=== PATIENT | male | born 1955 | race Caucasian/White ===

== ENCOUNTER 2016-07-28 18:49 | Inpatient (IN) | payer BC ==
--- NOTE | ~2016-07-28 | DS ---
Discharge Summary [facility] [address] [place]. [address] NAME: REGINALDO PIERRE : 53 STATUS : DIS IN PAT#: [id number] AGE: 60 ADM/REG DATE : 07/28/16 MR#: [id number] REPORT SERV DATE: 08/05/16 DICTATED BY: JOSE ELIAS VARGAS DATE: 08/04/16 REPORT STATUS : Draft TRANSCRIBED BY: MODL DATE: 08/04/16 ADMISSION DATE: 07/28/2016 DISCHARGE DATE: 08/04/2016 DISCHARGE DIAGNOSES: 1. Acute on chronic hypoxemic and hypercapnic respiratory failure, improved on current BiPAP therapy, now improved for home BiPAP. 2. Acute exacerbation of chronic obstructive pulmonary disease, currently resolved. 3. Obesity with obstructive sleep apnea and obesity hypoventilation syndrome, improved with BiPAP. 4. Acute on chronic diastolic heart failure, currently resolved. 5. Possible streptococcal pneumonia, now resolved. 6. Type 2 diabetes mellitus that is uncontrolled due to the patient's noncompliance and morbid obesity. 7. Iron deficiency anemia, status post IV iron. 8. Contaminated positive blood culture for Clostridium perfringens and staff anticoagulation, repeat blood cultures were negative without treatment. 9. Hypertension. 10.Hyperlipidemia. 11.Cirrhosis. 12.Coronary artery disease, status post stenting. 13.History of cerebrovascular accident. 14.History of venous thromboembolism. 15.Neuropathy. 16.Chronic rhinitis. OPERATIONS: None. CONSULTANTS DURING THIS HOSPITALIZATION: Radha Schaefer of Pulmonology. INVASIVE PROCEDURES DONE DURING THIS HOSPITALIZATION: None. BRIEF HISTORY OF PRESENT ILLNESS: The patient is a 60-year-old male who was triaged into the emergency room on 07/28/2016 at 1849 hours with shortness of breath. After evaluation in the emergency room, he was thought to have acute COPD exacerbation and was referred to the Hospitalist Service for further treatment. After admission, this patient was cared for by Dr. Vinh Reilly, please refer to interim summary dictated by Dr. Vinh Reilly on 08/02/2016. HOSPITAL COURSE: I took over this patient's care on 08/03/2016. This patient was doing well and stable. All medical conditions had improved. We were waiting for his insurance company to approve his BiPAP, this took almost 48 hours routine care. His BiPAP has been approved and will be delivered in the home setting. He remained stable, otherwise and is being discharged in stable condition. DISCHARGE DISPOSITION: Home. Discharge Summary [place] [address] [place]. [address] NAME: REGINALDO PIERRE : 53 STATUS : DIS IN PAT#: [id number] AGE: 60 ADM/REG DATE : 07/28/16 MR#: [id number] REPORT SERV DATE: 08/05/16 DICTATED BY: JOSE ELIAS VARGAS DATE: 08/04/16 REPORT STATUS : Draft TRANSCRIBED BY: TYREE DATE: 08/04/16 DISCHARGE ACTIVITY: As tolerated. DISCHARGE DIET: 1800-calorie [place] [employer] diet. DISCHARGE MEDICATIONS: Coreg 3.125 mg twice daily, Zantac 300 mg once at bedtime, Lasix 20 mg once daily, gabapentin 600 mg three times daily, Lantus SoloSTAR 40 units subcu twice daily, lisinopril 5 mg once daily, Prilosec 40 mg once at bedtime, simvastatin 40 mg once at bedtime, Proventil HFA two puffs every four hours p.r.n., albuterol neb four times daily, Spiriva one capsule inhalation once daily, Symbicort 160/4.5 two puffs twice daily, Symax 0.125 mg every four hours p.r.n. for abdominal cramping, Humalog 15 units subcu before each meal, potassium 10 mEq p.o. once daily. DISCHARGE FOLLOWUP: With Dr. Ashley Saucedo at [facility] in one to two weeks. More than 30 minutes spent planning this patient's discharge, reconciling medications, writing prescriptions, discussing hospital care, followup with the patient, arranging proper discharge, and documenting this discharge. CHRISTIAN/TYREE Jose Elias Vargas M.D. / [id number] CC: Jack Anaya MD
--- NOTE | ~2016-07-28 | PUL ---
[id number] [place]. [address] NAME: REGINALDO PIERRE : 53 STATUS : ADM IN [facility]#: [id number] AGE: 60 ADM/REG DATE : 07/28/16 MR#: [id number] REPORT SERV DATE: 07/30/16 DICTATED BY: STEPHANIE ARCHER DATE: 07/30/16 REPORT STATUS : Draft TRANSCRIBED BY: MODL DATE: 07/30/16 PULMONARY FUNCTION TEST OVERNIGHT OXIMETRY REPORT START DATE OF TESTIN07/29/2016 END DATE OF TESTIN07/30/2016 COMMENTS: Testing was conducted while the patient was breathing supplemental oxygen at a flow rate of 4 L/minute. RESULTS: Total valid sampling time 6 hours 55 minutes and 14 seconds. Total time with an oxygen saturation less than 88%, 28 minutes and 58 seconds. Oxygen desaturation event index, 4.0. IMPRESSION: There was significant desaturation during this study conducted while the patient was breathing supplemental oxygen at a flow rate of 4 L/minute. The oxygen desaturation index was not consistent with obstructive sleep apnea. Recommend increasing supplemental oxygen flow rate with sleep to a minimum of 5 L/minute. PS/MODL Stephanie Archer M.D. / [id number] CC: Vinh Reilly M.D.
--- NOTE | ~2016-07-28 | IDS ---
Interim Discharge Summary [facility] [address] [place]. [address] NAME: REGINALDO PIERRE : 53 STATUS : ADM IN PAT#: [id number] AGE: 60 ADM/REG DATE : 07/28/16 MR#: [id number] REPORT SERV DATE: 08/03/16 DICTATED BY: REG REILLY DATE: 08/02/16 REPORT STATUS : Draft TRANSCRIBED BY: MODL DATE: 08/02/16 ADMISSION DATE: 07/28/2016 DISCHARGE DATE: 08/02/2016 Interim summary covers period 07/29/2016 through 08/02/2016. CURRENT DIAGNOSES: 1. Acute on chronic hypoxemic and hypercapnic respiratory failure, improved on current therapy plus BiPAP. 2. Acute exacerbation of chronic obstructive pulmonary disease, improved. 3. Obesity with obstructive sleep apnea and obesity hypoventilation syndrome. The latter two improved with BiPAP. 4. Acute on chronic diastolic heart failure, improved. 5. Possible streptococcal pneumonia. 6. Diabetes. 7. Iron deficiency with ferritin of 11 and Hemoccult-positive stool, IV Nulecit treatment. Outpatient GI evaluation already scheduled. 8. Positive blood culture for Clostridium perfringens and Staph agglutination negative on admission, possible contaminant, repeat cultures pending. 9. Hypertension. 10.Hyperlipidemia. 11.Cirrhosis. 12.Coronary artery disease, post stenting. 13.History of stroke. 14.History of venous thromboembolism. 15.Neuropathy. 16.Chronic rhinitis. OPERATIONS AND PROCEDURES: None. HISTORY OF PRESENT ILLNESS: This is a 60-year-old white male, who was triaged in the emergency room on 07/28/2016 at 1849 hours with shortness of breath. After evaluation in the emergency room, he was thought to have an acute COPD exacerbation. He was referred to the Hospitalist Service for admission. He was seen by Dr. Dalton Caro and admitted as described on admission history and physical examination. Additional history included continued tobacco use. He had previously had hospitalizations at other [facility] for similar illnesses. He has had an extended stay at [facility]. He had Trilogy at home by his account, but no longer had this device. He was being followed by Dr. Schaefer in the Pulmonary Clinic. For some reason, home BiPAP had not been able to be arranged. ADDITIONAL HISTORY: Per Dr. Caro. PHYSICAL EXAMINATION: Per Dr. Caro. Interim Discharge Summary [id number] [place]. [address] NAME: REGINALDO PIERRE : 53 STATUS : ADM IN PAT#: [id number] AGE: 60 ADM/REG DATE : 07/28/16 MR#: [id number] REPORT SERV DATE: 08/03/16 DICTATED BY: REG REILLY DATE: 08/02/16 REPORT STATUS : Draft TRANSCRIBED BY: MODL DATE: 08/02/16 ADMISSION LABORATORY: Per Dr. Caro. HOSPITAL COURSE: He was admitted by Dr. Caro with acute COPD exacerbation, acute on chronic hypoxic respiratory failure, chronic hypercarbic respiratory failure, obstructive sleep apnea, obesity hypoventilation syndrome not on CPAP or BiPAP, morbid obesity, chronic diastolic heart failure with concern for volume overload. All in the setting of the above- mentioned comorbidities. He was admitted to [address] [place] [address]. He was given bronchodilator therapy, IV steroids, Levaquin, and BiPAP. He was given some additional diuretic therapy. His hospital care was assumed by the undersigned on 07/29/2016. With the above mentioned therapy, there has been continued improvement in his admitting symptoms. Today, his cough is largely resolved and his dyspnea is dramatically improved. Arterial blood gases in the emergency room were pH 738, pCO2 of 74, and pO2 of 67. On 07/30/2016, pH 726, pCO2 of 99, and pO2 77. On 08/01/2016, pH 744, pCO2 of 51, and pO2 of 60 on 5 L. Case management is working with his insurance case management to get a BiPAP approved for home use. With additional diuretic therapy, he has had a sustained diuresis with resolution of his lower extremity edema without the development of renal impairment. On admission, cultures were obtained. His sputum was positive for Strep pneumonia. One blood culture was no growth. A second blood culture grew clostridium perfringens and Staph species agglutination negative. This may be contaminant. Repeat blood cultures are pending. He had a hemoglobin of 12.8 on admission which fell to 11.7 and is 12.3 today. An evaluation included an iron of 26, TIBC 406%, sat 8, ferritin 11, B12 of 459, TSH 0.521, LDH 171, and serum protein electrophoresis which did not demonstrate a monoclonal gammopathy. A stool was checked for blood and was Hemoccult positive. He has been given IV Nulecit iron replacement without side effect. He reports a previous GI evaluation, but does not know his physician. Apparently, these records were at [facility]. They have been requested, but have not been received as of this date. He reports he has a followup evaluation already scheduled. During his hospitalization, he has requested an increasing amount of calories. This has been provided without significant changes in his diabetes management. DISPOSITION: Home, pending BiPAP approval. Care to be assumed by hospitalist team. Interim Discharge Summary [id number] [place]. [address] NAME: REGINALDO PIERRE : 53 STATUS : ADM IN [facility]#: [id number] AGE: 60 ADM/REG DATE : 07/28/16 MR#: [id number] REPORT SERV DATE: 08/03/16 DICTATED BY: REG REILLY DATE: 08/02/16 REPORT STATUS : Draft TRANSCRIBED BY: MODTrevin DATE: 08/02/16 DD/TYREE Reg Reilly M.D. / [id number] CC: Jack Arndt MD
--- NOTE | ~2016-07-28 | HP ---
History And Physical [place] [address] [id number] [facility] [place]. [address] NAME: REGINALDO PIERRE : 53 STATUS : ADM IN PAT#: [id number] AGE: 60 ADM/REG DATE : 07/28/16 MR#: [id number] REPORT SERV DATE: 07/28/16 DICTATED BY: SAMI GALLOWAY DATE: 07/28/16 REPORT STATUS : Draft TRANSCRIBED BY: MODL DATE: 07/28/16 DATE OF ADMISSION: 07/28/2016 POINT OF ENTRY: [facility] Emergency Department. PRIMARY [employer] CONTRACTOR: Dr. Radha Schaefer. CHIEF COMPLAINT: Shortness of breath. HISTORY OF PRESENT ILLNESS: Mr. Pierre is a 60-year-old gentleman with a history of COPD on 4 L nasal cannula as well as morbid obesity hypoventilation syndrome and obstructive sleep apnea, noncompliant with either CPAP or BiPAP therapy, who presents to the emergency department today with a three to four-day history of shortness of breath. Unfortunately, the patient continues to smoke cigarettes about a half pack per day, although he tells me that he quit smoking yesterday. He states that for the past three to four days he has noted progressive worsening shortness of breath, associated wheezing, as well as worsening of his baseline cough and sputum production. He denies any fevers, night sweats, chills, or lower extremity edema. He does report some chest pain with coughing but denies any chest pain at rest or with exertion. He states that he did not adjust his oxygen condenser or tank as he is unable to handle any increase, did start to increase the frequency of his bronchodilators at home without much improvement. The patient has a history of obstructive sleep apnea and obesity hypoventilation syndrome, as well as severe COPD and has previously been on either CPAP or BiPAP at home but states that it is broken and has not been able to get it replaced. Initial evaluation in the emergency department notable for a chest x-ray that is concerning for intravascular volume overload as well as bibasilar infiltrates concerning for atelectasis versus pneumonia. ABG is well-compensated on 6 L nasal cannula. Remainder of his labs are otherwise unremarkable. The patient was subsequently admitted to the Hospitalist Service for further evaluation and management. REVIEW OF SYSTEMS: Comprehensive review of systems otherwise negative unless listed in history of present illness. PREVIOUS MEDICAL HISTORY: 1. Severe COPD on 4 L by nasal cannula. 2. Obesity hypoventilation syndrome. 3. Obstructive sleep apnea, not on CPAP or BiPAP therapy. 4. Chronic diastolic congestive heart failure. 5. Chronic hypoxic and hypercarbic respiratory failure. 6. Hypertension. 7. Hyperlipidemia. 8. History of coronary artery disease with prior PCI. History And Physical [address] [address] NAME: REGINALDO PIERRE : 53 STATUS : ADM IN [facility]#: [id number] AGE: 60 ADM/REG DATE : 07/28/16 MR#: [id number] REPORT SERV DATE: 07/28/16 DICTATED BY: SAMI GALLOWAY DATE: 07/28/16 REPORT STATUS : Draft TRANSCRIBED BY: TYREE DATE: 07/28/16 9. Insulin-dependent diabetes mellitus, type 2 with recent hemoglobin A1c of 9.5. 10.Morbid obesity. 11.History of hepatic cirrhosis. 12.Chronic hepatitis C. 13.History of cerebrovascular accident. SURGICAL HISTORY: PCI. ALLERGIES: CODEINE AND DILAUDID. HOME MEDICATIONS: 1. Albuterol two puff inhalation q.4 hours p.r.n. 2. Albuterol one nebulization q.4 hours p.r.n. 3. Goody's powder one packet daily p.r.n. 4. Symbicort two puff inhalation b.i.d. 5. Carvedilol 3.125 mg b.i.d. 6. Gabapentin 600 mg t.i.d. 7. Hyoscyamine 0.125 mg q.4 hours p.r.n. 8. Lantus 40 units b.i.d. 9. Humalog 15 units with meals. 10.Lisinopril 5 mg daily. 11.Omeprazole 40 mg at bedtime. 12.Zantac 300 mg at bedtime. 13.Simvastatin 40 mg at bedtime. 14.Spiriva one cap inhalation daily. SOCIAL HISTORY: He was smoking a pack per day up until yesterday which he now says he has quit. Denies any alcohol. Denies illicits. FAMILY MEDICAL HISTORY: History of COPD and emphysema. LABS AND IMAGIN. White count 6.5, hemoglobin 12.8, hematocrit 42.3, and platelet count 152. 2. Sodium is 143, potassium 3.9, chloride 97, carbon dioxide 41, BUN 7, creatinine 0.58, glucose is 121, calcium is 8.1, protein 6.6, albumin 3.0, bilirubin is 0.9, ALT is 21, AST 19, and alkaline phosphatase is 156. 3. Troponin is less than 0.02. 4. BNP is pending. 5. ABG; pH is 7.3, pCO2 of 74, PO2 of 67, bicarb is 43, saturating 93% on 6 L by nasal cannula. 6. Chest x-ray per my review shows cardiomegaly as well as bibasilar infiltrates concerning for atelectasis versus pneumonia, also presence of intravascular volume overload and pulmonary venous congestion. PHYSICAL EXAMINATION: VITAL SIGNS: Temperature is 98.0 degrees Fahrenheit, pulse is 90, respirations 18, saturating 96% on 6 L by nasal cannula, and blood pressure 161/80. History And Physical [address] [address] NAME: REGINALDO PIERRE : 53 STATUS : ADM IN [facility]#: [id number] AGE: 60 ADM/REG DATE : 07/28/16 MR#: [id number] REPORT SERV DATE: 07/28/16 DICTATED BY: SAMI GALLOWAY DATE: 07/28/16 REPORT STATUS : Draft TRANSCRIBED BY: TYREE DATE: 07/28/16 GENERAL: The patient is awake, alert, in no acute distress. Resting comfortably in bed. He is a morbidly obese appearing male. HEENT: Atraumatic and normocephalic. Moist mucous membranes. Pupils are equal, round, and reactive to light and accommodation. Extraocular eye movements are intact. No scleral icterus. NECK: No jugular venous distention. No carotid bruits. CARDIAC: Regular rate and rhythm. A 2/6 systolic murmur, heard best over left lower sternal border. LUNGS: On oxygen, but in no respiratory distress. Does have some decreased breath sounds at bases as well as diffuse mild inspiratory wheezes in all lung hardy with some faint inspiratory crackles in the bilateral bases. ABDOMEN: Obese soft, nontender, nondistended. Good bowel sounds. No rebound, guarding, or rigidity. EXTREMITIES: Warm and perfused. No cyanosis or clubbing. Does have some trace lower extremity edema. SKIN: Warm and dry. PSYCH: Affect appropriate. NEURO: Alert and oriented x3. Cranial nerves 2 through 12 grossly intact. Speech is normal. Gait not assessed. ASSESSMENT: Mr. Pierre is a 60-year-old gentleman with history of severe chronic obstructive pulmonary disease, as well as chronic hypoxic and hypercarbic respiratory failure, who presents with a three to four-day history of worsening shortness of breath and found to have acute chronic obstructive pulmonary disease exacerbation. PROBLEM LIST: 1. Acute COPD exacerbation. 2. Acute on chronic hypoxic respiratory failure. 3. Chronic hypercarbic respiratory failure. 4. Obstructive sleep apnea and obesity hypoventilation syndrome, not on CPAP or BiPAP therapy. 5. Morbid obesity. 6. Chronic diastolic congestive heart failure with concern for volume overload. 7. History of coronary artery disease. 8. Insulin-dependent diabetes mellitus, type 2. PLAN: 1. Acute COPD exacerbation. We will admit the patient to Hospitalist Service, place on IV steroids, as well as frequent nebulizers and bronchodilators as well as some antibiotics. ABG shows that he is currently well compensated. Will not require continuous BiPAP. We will place him on some p.r.n. as well as at bedtime BiPAP given his history of noncompliance with home CPAP or BiPAP for his multiple lung diseases. 2. Acute on chronic hypoxic respiratory failure. We will attempt to wean as tolerated. The patient currently is well compensated for his chronic hypercarbia. 3. Chronic diastolic congestive heart failure. He does have some mild edema on exam and chest x-ray is concerning for intravascular volume overload. BNP is pending at the time of dictation. We will place him on some low-dose IV Lasix, attempt to improve his History And Physical [address] [address] NAME: REGINALDO PIERRE : 53 STATUS : ADM IN [facility]#: [id number] AGE: 60 ADM/REG DATE : 07/28/16 MR#: [id number] REPORT SERV DATE: 07/28/16 DICTATED BY: SAMI GALLOWAY DATE: 07/28/16 REPORT STATUS : Draft TRANSCRIBED BY: MODL DATE: 07/28/16 oxygenation and breathing. 4. Insulin-dependent diabetes mellitus, type 2. Continue the patient's home insulin regimen. Place him on a level 3 insulin sliding scale given need for IV steroids. 5. History of coronary artery disease. Troponin is negative, but we will check an EKG given reports of chest pain with coughing. 6. Active tobacco abuse. Nicotine replacement protocol. Counseled on need for cessation. 7. DVT prophylaxis. Lovenox subcu. CODE STATUS: The patient wished to be full code. JCSuha/MODL Sami Galloway MD / [id number] CC: Ashley Schaefer M.D.
[~2016-07-28 18:49] MED LIST: *UNABLE3; ACCUNEB INH; ADVAIR250 INH; ALBUTEROL5 INH; AMARYL2 PO; AMB10 PO; ATROVENT HFA17 MCG INH; BP MED PO; BUM1 PO; BUM2 PO; BUM5 PO; CEFT5 PO; CLARIT10 PO; COREG3 PO; DIL2TAB PO; DIOV80 PO; FLOVENT DISK50 MCG INH; FOLIC PO; GLUCOPHAGE1000 MG PO; GLUCPH PO; HUMALOG; HUMALOG SC; HUMIBID1200 MG PO; IRON325 MG PO; JANUMET1 TA1 PO; KDUR20 PO; KLOR-CON M2020 MEQ PO; L20 PO; LAM250 PO; LANTUS SC; LEVAQUIN750 MG PO; LEVEMIR SC; LOP25 PO; LOP50 PO; LORTAB10 PO; MONODOX100 MG PO; NEUR300; NEUR600 PO; NORCO1 TAB PO; NORV10 PO; NORV5 PO; NOVOLOG SC; P10 PO; P20 PO; PEP20 PO; PLAVIX PO; PRILO PO; PRIN2.5 PO; PRIN5 PO; PROAIR HFA INH; PROVENTSOL INH; SPIRIVA INH; SPIRO50 PO; SYMBICORT 160/41 INH INH; T300 PO; ULTRAM50 PO; VENTOLIN HFA INH; ZESTORETIC1 TAB PO; ZESTRIL5 MG PO; ZITH250 PO; ZITHROMAX500 MG PO; ZOCOR40 PO; [UNRECOGNIZED DRUG - OTHER] PO
[2016-07-28 20:29] LABS: BASOPHILS 0.5 %; BASOPHILS ABSOLUTE 0.03 10/3/uL (0.0-0.16); EOSINOPHILS 1.5 %; ER CBC TAT 0 Hrs 05 Mins; HEMOGLOBIN 12.8 g/dL (13.6-17.8); IMMATURE GRANULOCYTES 0.2 %; IMMATURE GRANULOCYTES ABSOLUTE 0.01 10/3/uL (0.0-0.11); LYMPHOCYTES 14.3 %; LYMPHOCYTES ABSOLUTE 0.93 10/3/uL (0.67-4.30); MEAN CORPUS HGB CONC 30.3 g/dL (32.0-36.0); MEAN CORPUSCULAR HEMOGLOB 30.3 pg (26.0-34.0); MEAN CORPUSCULAR VOLUME 100.2 fL (80-100); MEAN PLATELET VOLUME 11.9 fL (9.2-13.0); MONOCYTES 11.4 %; MONOCYTES ABSOLUTE 0.74 10/3/uL (0.21-1.20); NEUTROPHILS 72.1 %; PLATELET COUNT 152 10/3/uL (150-400); RBC DISTRIBUTION WIDTH 14.3 % (12.0-16.0); RED CELL COUNT 4.22 10/6/uL (4.7-6.1); WHITE BLOOD CELLS 6.5 10/3/uL (4.5-10.5)
[2016-07-28 20:30] LABS: HEMATOCRIT 42.3 % (40.0-51.0); MANUAL DIFF NO %
[2016-07-28 20:33] LABS: ALLENS TEST Pos; BE (BASE EXCESS) 14.5 MEQ/L (0 +/- 2.5); DEVICE NC; HEMOBLOGIN CONTENT 13.3 G/DL (14-18); INSTRUMENT SERIAL # 8087; METHEMOGLOBIN 0.3 % (0-3); O2 CONTENT 16.8 VOL% (18-24); OPERATOR ID 334499; PCO2 (CO2 TENSION) 74 MMHG (35-45); PO2 (O2 TENSION) 67 MMHG (79-93); SAMPLE Arterial; pH 7.38 (7.37-7.43)
[2016-07-28 20:47] LABS: A/G RATIO 0.8 (0.7-1.9); ALKALINE PHOSPHATASE 156 U/L (45-117); BUN (BLOOD UREA NITROGEN) 7 MG/DL (6-23); CALCIUM, SERUM 8.1 MG/DL (8.5-10.4); CHLORIDE, SERUM 97 MMOL/L (96-112); CO2 (CARBON DIOXIDE) 41 MMOL/L (24-34); CREATININE 0.58 MG/DL (0.70-1.30); GFR AFRICAN AMERICAN 128 ML/MIN (>=60); GFR NON AFRICAN AMERICAN 110 ML/MIN (>=60); GLOBULIN 3.6 G/DL (2.5-4.1); GLUCOSE, SERUM 121 MG/DL (60-99); POTASSIUM, SERUM 3.9 MMOL/L (3.5-5.3); SGOT(AST) 19 U/L (5-40); SGPT(ALT) 21 U/L (5-65); SODIUM, SERUM 143 MMOL/L (135-148); TOTAL BILIRUBIN 0.9 MG/DL (0-1.2); TOTAL PROTEIN 6.6 G/DL (6.0-8.5); TROPONIN I <0.02 NG/ML (<0.05)
[2016-07-28] MEDS ORDERED: PRIN5 PO (21:21)
[2016-07-28] MEDS ORDERED: ALBUTEROL0.63 MG/3 INH (21:22)
[2016-07-28] MEDS ORDERED: ZOCOR40 PO (21:22)
[2016-07-28] MEDS ORDERED: COREG3 PO (21:22)
[2016-07-28] MEDS ORDERED: SPIRIVA INH (21:23)
[2016-07-28] MEDS ORDERED: NEUR300 PO (21:23)
[2016-07-28] MEDS ORDERED: RANITIDINE300 MG PO (21:23)
[2016-07-28] MEDS ORDERED: PRILOSEC40 MG PO (21:23)
[2016-07-28] MEDS ORDERED: SYMBICORT 160/41 INH INH (21:23)
[2016-07-28] MEDS ORDERED: LANTUSCART SC (21:24)
[2016-07-28] MEDS ORDERED: HUMALOG SC (21:24)
[2016-07-28] MEDS ORDERED: GOODY'S EX-STR1 EAC1 PO (21:24)
[2016-07-28] MEDS ORDERED: SYMAX-SL0.125 MG PO (21:24)
[2016-07-28] MEDS ORDERED: PROVHFA INH (21:25)
[2016-07-28 23:04] LABS: PROCALCITONIN 0.11 ng/mL (<0.5)
[2016-07-29 05:31] LABS: BASOPHILS 0 %; EOSINOPHILS 0.2 %; EOSINOPHILS ABSOLUTE 0.01 10/3/uL (0.0-0.53); HEMATOCRIT 41.6 % (40.0-51.0); IMMATURE GRANULOCYTES 0.2 %; IMMATURE GRANULOCYTES ABSOLUTE 0.01 10/3/uL (0.0-0.11); LYMPHOCYTES 8.2 %; LYMPHOCYTES ABSOLUTE 0.44 10/3/uL (0.67-4.30); MEAN CORPUS HGB CONC 28.8 g/dL (32.0-36.0); MEAN CORPUSCULAR HEMOGLOB 29.2 pg (26.0-34.0); MEAN CORPUSCULAR VOLUME 101.2 fL (80-100); MEAN PLATELET VOLUME 12.3 fL (9.2-13.0); MONOCYTES 2.2 %; MONOCYTES ABSOLUTE 0.12 10/3/uL (0.21-1.20); NEUTROPHILS 89.2 %; PLATELET COUNT 149 10/3/uL (150-400); RBC DISTRIBUTION WIDTH 14.2 % (12.0-16.0); RED CELL COUNT 4.11 10/6/uL (4.7-6.1); WHITE BLOOD CELLS 5.4 10/3/uL (4.5-10.5)
[2016-07-29 05:34] LABS: MANUAL DIFF NO %
[2016-07-29 05:54] LABS: BUN (BLOOD UREA NITROGEN) 10 MG/DL (6-23); CALCIUM, SERUM 8.4 MG/DL (8.5-10.4); CHLORIDE, SERUM 95 MMOL/L (96-112); CO2 (CARBON DIOXIDE) 39 MMOL/L (24-34); CREATININE 0.81 MG/DL (0.70-1.30); FREE T4 1.02 NG/DL (0.76-1.46); GFR AFRICAN AMERICAN 111 ML/MIN (>=60); GFR NON AFRICAN AMERICAN 96 ML/MIN (>=60); POTASSIUM, SERUM 4.3 MMOL/L (3.5-5.3); SODIUM, SERUM 141 MMOL/L (135-148)
[2016-07-29 05:55] LABS: GLUCOSE, SERUM 233 MG/DL (60-99); ULTRASENSITIVE TSH 0.521 MCIU/ML (0.358-3.740)
[2016-07-29 18:22] LABS: C-REACTIVE PROTEIN 9.1 MG/L (<8.0); FERRITIN 11 NG/ML (26-388); IRON BINDING CAPACITY 406 MCG/DL (250-450); IRON, SERUM 26 MCG/DL (35-150)
[2016-07-30 05:50] LABS: ALLENS TEST Pos; BE (BASE EXCESS) 11.9 MEQ/L (0 +/- 2.5); CARBOXYHEMOGLOBIN 0.7 % (0-3); DEVICE NC; HEMOBLOGIN CONTENT 12.5 G/DL (14-18); INSTRUMENT SERIAL # 8083; METHEMOGLOBIN 0.3 % (0-3); O2 CONTENT 16.4 VOL% (18-24); PCO2 (CO2 TENSION) 99 MMHG (35-45); PO2 (O2 TENSION) 77 MMHG (79-93); SAMPLE Arterial; pH 7.26 (7.37-7.43)
[2016-07-30 07:07] LABS: BASOPHILS 0 %; EOSINOPHILS 0 %; HEMATOCRIT 39.8 % (40.0-51.0); HEMOGLOBIN 11.7 g/dL (13.6-17.8); IMMATURE GRANULOCYTES 0.1 %; IMMATURE GRANULOCYTES ABSOLUTE 0.01 10/3/uL (0.0-0.11); LYMPHOCYTES 13.4 %; LYMPHOCYTES ABSOLUTE 1.01 10/3/uL (0.67-4.30); MEAN CORPUS HGB CONC 29.4 g/dL (32.0-36.0); MEAN CORPUSCULAR HEMOGLOB 29.2 pg (26.0-34.0); MEAN CORPUSCULAR VOLUME 99.3 fL (80-100); MEAN PLATELET VOLUME 11.9 fL (9.2-13.0); MONOCYTES 9.8 %; MONOCYTES ABSOLUTE 0.74 10/3/uL (0.21-1.20); NEUTROPHILS 76.7 %; PLATELET COUNT 158 10/3/uL (150-400); RBC DISTRIBUTION WIDTH 14.2 % (12.0-16.0); RED CELL COUNT 4.01 10/6/uL (4.7-6.1)
[2016-07-30 07:13] LABS: MANUAL DIFF NO %; WHITE BLOOD CELLS 7.6 10/3/uL (4.5-10.5)
[2016-07-30 07:16] LABS: CALCIUM, SERUM 8.5 MG/DL (8.5-10.4); CHLORIDE, SERUM 98 MMOL/L (96-112); CREATININE 0.64 MG/DL (0.70-1.30); GFR AFRICAN AMERICAN 122 ML/MIN (>=60); GFR NON AFRICAN AMERICAN 106 ML/MIN (>=60); POTASSIUM, SERUM 4.6 MMOL/L (3.5-5.3); SODIUM, SERUM 142 MMOL/L (135-148)
[2016-07-30 07:17] LABS: BUN (BLOOD UREA NITROGEN) 18 MG/DL (6-23); CO2 (CARBON DIOXIDE) 40 MMOL/L (24-34); GLUCOSE, SERUM 116 MG/DL (60-99)
[2016-07-30 10:22] LABS: A/G 1.34 RATIO (0.9-2.10); ALB RELATIVE % 57.3 % (60.0-89.0); ALBUMIN (ELECTRO) 3.44 GM/DL (3.2-5.5); ALPHA 1 (ELECTRO) 0.23 GM/DL (0.1-0.4); ALPHA 1 RELAT % (NOT ORD) 3.8 % (1.0-4.0); ALPHA 2 (ELECTRO) 0.75 GM/DL (0.5-1.10); ALPHA 2 RELAT % 12.5 % (4.5-26.0); BETA GLOBULIN (SPE) 0.75 GM/DL (0.60-1.30); BETA RELATIVE % 12.5 % (9.0-22.0); GAMMA GLOBULIN (SPE) 0.83 G/DL (0.70-1.60); GAMMA RELAT % 13.9 % (6.0-22.0)
[2016-07-31 06:14] LABS: BASOPHILS 0.1 %; BASOPHILS ABSOLUTE 0.01 10/3/uL (0.0-0.16); EOSINOPHILS 0 %; HEMATOCRIT 42.6 % (40.0-51.0); HEMOGLOBIN 12.6 g/dL (13.6-17.8); IMMATURE GRANULOCYTES 0.3 %; IMMATURE GRANULOCYTES ABSOLUTE 0.02 10/3/uL (0.0-0.11); LYMPHOCYTES 15.6 %; LYMPHOCYTES ABSOLUTE 1.19 10/3/uL (0.67-4.30); MEAN CORPUS HGB CONC 29.6 g/dL (32.0-36.0); MEAN CORPUSCULAR HEMOGLOB 29.2 pg (26.0-34.0); MEAN CORPUSCULAR VOLUME 98.6 fL (80-100); MEAN PLATELET VOLUME 11.8 fL (9.2-13.0); MONOCYTES 11.1 %; MONOCYTES ABSOLUTE 0.85 10/3/uL (0.21-1.20); NEUTROPHILS 72.9 %; NEUTROPHILS ABSOLUTE 5.57 10/3/uL (2.02-8.40); PLATELET COUNT 148 10/3/uL (150-400); RBC DISTRIBUTION WIDTH 14.1 % (12.0-16.0); RED CELL COUNT 4.32 10/6/uL (4.7-6.1); RETICULOCYTE COUNT 3.3 % (0.5-2.5); RETICULOCYTE COUNT ABSOLUTE 141.3 10/3/uL (20.2-119.8); WHITE BLOOD CELLS 7.6 10/3/uL (4.5-10.5)
[2016-07-31 06:15] LABS: MANUAL DIFF NO %
[2016-07-31 06:31] LABS: CALCIUM, SERUM 8.6 MG/DL (8.5-10.4); CHLORIDE, SERUM 97 MMOL/L (96-112); CO2 (CARBON DIOXIDE) 39 MMOL/L (24-34); CREATININE 0.83 MG/DL (0.70-1.30); GFR AFRICAN AMERICAN 110 ML/MIN (>=60); GFR NON AFRICAN AMERICAN 95 ML/MIN (>=60); GLUCOSE, SERUM 119 MG/DL (60-99); POTASSIUM, SERUM 4.1 MMOL/L (3.5-5.3); SODIUM, SERUM 139 MMOL/L (135-148)
[2016-07-31 06:34] LABS: BUN (BLOOD UREA NITROGEN) 31 MG/DL (6-23)
[2016-08-01 07:17] LABS: CALCIUM, SERUM 8.1 MG/DL (8.5-10.4); CHLORIDE, SERUM 100 MMOL/L (96-112); CO2 (CARBON DIOXIDE) 38 MMOL/L (24-34); CREATININE 0.77 MG/DL (0.70-1.30); GFR AFRICAN AMERICAN 114 ML/MIN (>=60); GFR NON AFRICAN AMERICAN 98 ML/MIN (>=60); POTASSIUM, SERUM 4.1 MMOL/L (3.5-5.3); SODIUM, SERUM 142 MMOL/L (135-148)
[2016-08-01 07:18] LABS: BUN (BLOOD UREA NITROGEN) 24 MG/DL (6-23); GLUCOSE, SERUM 155 MG/DL (60-99)
[2016-08-02 07:13] LABS: BASOPHILS 0.2 %; BASOPHILS ABSOLUTE 0.01 10/3/uL (0.0-0.16); EOSINOPHILS 0.7 %; EOSINOPHILS ABSOLUTE 0.04 10/3/uL (0.0-0.53); HEMATOCRIT 41.6 % (40.0-51.0); HEMOGLOBIN 12.3 g/dL (13.6-17.8); IMMATURE GRANULOCYTES 0.3 %; IMMATURE GRANULOCYTES ABSOLUTE 0.02 10/3/uL (0.0-0.11); LYMPHOCYTES 20.9 %; LYMPHOCYTES ABSOLUTE 1.24 10/3/uL (0.67-4.30); MEAN CORPUS HGB CONC 29.6 g/dL (32.0-36.0); MEAN CORPUSCULAR HEMOGLOB 29.4 pg (26.0-34.0); MEAN CORPUSCULAR VOLUME 99.5 fL (80-100); MEAN PLATELET VOLUME 11.8 fL (9.2-13.0); MONOCYTES 9.6 %; MONOCYTES ABSOLUTE 0.57 10/3/uL (0.21-1.20); NEUTROPHILS 68.3 %; NEUTROPHILS ABSOLUTE 4.06 10/3/uL (2.02-8.40); PLATELET COUNT 138 10/3/uL (150-400); RBC DISTRIBUTION WIDTH 14.1 % (12.0-16.0); RED CELL COUNT 4.18 10/6/uL (4.7-6.1); WHITE BLOOD CELLS 5.9 10/3/uL (4.5-10.5)
[2016-08-02 07:15] LABS: MANUAL DIFF NO %; RETICULOCYTE COUNT 2.1 % (0.5-2.5); RETICULOCYTE COUNT ABSOLUTE 89.5 10/3/uL (20.2-119.8)
[2016-08-02 07:26] LABS: BUN (BLOOD UREA NITROGEN) 26 MG/DL (6-23); CALCIUM, SERUM 8.2 MG/DL (8.5-10.4); CHLORIDE, SERUM 100 MMOL/L (96-112); CO2 (CARBON DIOXIDE) 36 MMOL/L (24-34); CREATININE 0.63 MG/DL (0.70-1.30); GFR AFRICAN AMERICAN 123 ML/MIN (>=60); GFR NON AFRICAN AMERICAN 106 ML/MIN (>=60); GLUCOSE, SERUM 94 MG/DL (60-99); POTASSIUM, SERUM 4.3 MMOL/L (3.5-5.3); SODIUM, SERUM 141 MMOL/L (135-148)
[2016-08-02 07:40] LABS: PLATELET ESTIMATE SLT DEC (ADEQUATE)
[2016-08-02 07:41] LABS: POLYCHROMASIA 1+ (2-5/OIF) (0-1/OIF)
[2016-08-03] MEDS ORDERED: L20 PO (12:20)
[2016-08-03] MEDS ORDERED: KLOR-CON 1010 MEQ PO (12:22)
[2016-12-17] MEDS ORDERED: CLARIT10 PO (09:11)
[2016-12-17] MEDS ORDERED: AMB5 PO (09:12)
[2016-12-17] MEDS ORDERED: SINGULAIR1 PO (09:12)
[2016-12-17] MEDS ORDERED: PROTONIX PO (09:12)
[2016-12-17] MEDS ORDERED: MOBIC15 MG PO (09:12)
[2016-12-17] MEDS ORDERED: HALF81 PO (09:12)
[2016-12-19] MEDS ORDERED: P10 PO (16:49)
[2016-12-19] MEDS ORDERED: VIBRATAB100 MG PO (16:50)
== END 2016-08-04 16:59 | disposition home or self-care (01) | DRG 291 ==
LOC: ER 18:49 → 6NO 22:11
PROVIDERS: Emergency Medicine; Internal Medicine
PROC: 5A09357 Assistance with Respiratory Ventilation, Less than 24 Consecutive Hours, Continuous Positive Airway Pressure (ICD-10-PCS; principal; 2016-07-29)
DX: I50.33 Acute on chronic diastolic (congestive) heart failure (principal); J15.4 Pneumonia due to other streptococci; J96.21 Acute and chronic respiratory failure with hypoxia; J44.0 Chronic obstructive pulmonary disease with (acute) lower respiratory infection; F17.210 Nicotine dependence, cigarettes, uncomplicated; D50.9 Iron deficiency anemia, unspecified; J96.22 Acute and chronic respiratory failure with hypercapnia; J44.1 Chronic obstructive pulmonary disease with (acute) exacerbation; E66.2 Morbid (severe) obesity with alveolar hypoventilation; Z68.41 Body mass index [BMI] 40.0-44.9, adult; E11.40 Type 2 diabetes mellitus with diabetic neuropathy, unspecified; I11.0 Hypertensive heart disease with heart failure; E78.5 Hyperlipidemia, unspecified; B18.2 Chronic viral hepatitis C; K74.60 Unspecified cirrhosis of liver; J30.9 Allergic rhinitis, unspecified; E11.65 Type 2 diabetes mellitus with hyperglycemia; I25.10 Atherosclerotic heart disease of native coronary artery without angina pectoris; R19.7 Diarrhea, unspecified; Z79.4 Long term (current) use of insulin; Z88.5 Allergy status to narcotic agent; Z86.73 Personal history of transient ischemic attack (TIA), and cerebral infarction without residual deficits; Z86.718 Personal history of other venous thrombosis and embolism
CPT/HCPCS: 36600; 71010; 80048; 80053; 82272; 82330; 82607; 82728; 82803; 82805; 82947; 82962; 83036; 83540; 83550; 83615; 83735; 83880; 84132; 84145; 84155; 84165; 84295; 84439; 84443; 84484; 85014; 85025; 85045; 86140; 87040; 87070; 87077; 87186; 87205; 87449; 94640; 94660; 94667; 94668; 94762; 96374; 99285; A9270-GY; J1956; J2916; J2930

== ENCOUNTER 2016-08-31 15:26 | Emergency (ER) | payer BC ==
[~2016-08-31 15:26] MED LIST changes: +ALBUTEROL0.63 MG/3 INH; +GOODY'S EX-STR1 EAC1 PO; +KLOR-CON 1010 MEQ PO; +LANTUSCART SC; +NEUR300 PO; +PRILOSEC40 MG PO; +PROVHFA INH; +RANITIDINE300 MG PO; +SYMAX-SL0.125 MG PO
[2016-08-31 15:36] LABS: BASOPHILS 0.3 %; BASOPHILS ABSOLUTE 0.02 10/3/uL (0.0-0.16); EOSINOPHILS ABSOLUTE 0.06 10/3/uL (0.0-0.53); HEMATOCRIT 40.7 % (40.0-51.0); HEMOGLOBIN 12.7 g/dL (13.6-17.8); LYMPHOCYTES 13.9 %; LYMPHOCYTES ABSOLUTE 0.86 10/3/uL (0.67-4.30); MEAN CORPUSCULAR HEMOGLOB 30.2 pg (26.0-34.0); MEAN CORPUSCULAR VOLUME 96.9 fL (80-100); MEAN PLATELET VOLUME 12.3 fL (9.2-13.0); MONOCYTES 7.4 %; MONOCYTES ABSOLUTE 0.46 10/3/uL (0.21-1.20); NEUTROPHILS 77.4 %; NEUTROPHILS ABSOLUTE 4.78 10/3/uL (2.02-8.40); PLATELET COUNT 107 10/3/uL (150-400); RBC DISTRIBUTION WIDTH 15.9 % (12.0-16.0); WHITE BLOOD CELLS 6.2 10/3/uL (4.5-10.5)
[2016-08-31 15:38] LABS: MANUAL DIFF NO %; MEAN CORPUS HGB CONC 31.2 g/dL (32.0-36.0)
[2016-08-31 15:54] LABS: CALCIUM, SERUM 8.7 MG/DL (8.5-10.4); CHEST PAIN PROFILE TAT 0 Hrs 22 Mins; CHLORIDE, SERUM 106 MMOL/L (96-112); CREATININE 0.85 MG/DL (0.70-1.30); GFR AFRICAN AMERICAN 109 ML/MIN (>=60); GFR NON AFRICAN AMERICAN 94 ML/MIN (>=60); PARTIAL THROMBO TIME 32.9 SEC (22.5-37.2); SODIUM, SERUM 143 MMOL/L (135-148); TROPONIN I 0.02 NG/ML (<0.05)
[2016-08-31 15:55] LABS: INTERNATIONAL NORMAL RATI 1.1 UNITS (-); PROTIME (NOT ORD) 14.3 SEC (12.0-14.5)
[2016-08-31 15:56] LABS: BUN (BLOOD UREA NITROGEN) 13 MG/DL (6-23); CO2 (CARBON DIOXIDE) 29 MMOL/L (24-34); GLUCOSE, SERUM 157 MG/DL (60-99)
[2016-12-17] MEDS ORDERED: CLARIT10 PO (09:11)
[2016-12-17] MEDS ORDERED: SINGULAIR1 PO (09:12)
[2016-12-17] MEDS ORDERED: PROTONIX PO (09:12)
[2016-12-17] MEDS ORDERED: AMB5 PO (09:12)
[2016-12-17] MEDS ORDERED: HALF81 PO (09:12)
[2016-12-17] MEDS ORDERED: MOBIC15 MG PO (09:12)
[2016-12-19] MEDS ORDERED: P10 PO (16:49)
[2016-12-19] MEDS ORDERED: VIBRATAB100 MG PO (16:50)
== END 2016-08-31 19:04 | disposition home or self-care (01) ==
LOC: ER 15:26
PROVIDERS: Emergency Medicine
DX: R00.8 Other abnormalities of heart beat (principal); G89.29 Other chronic pain; I25.10 Atherosclerotic heart disease of native coronary artery without angina pectoris; R06.02 Shortness of breath; Z68.41 Body mass index [BMI] 40.0-44.9, adult; J44.9 Chronic obstructive pulmonary disease, unspecified; I25.2 Old myocardial infarction; Z86.73 Personal history of transient ischemic attack (TIA), and cerebral infarction without residual deficits; Z88.5 Allergy status to narcotic agent; Z79.4 Long term (current) use of insulin; Z79.899 Other long term (current) drug therapy
CPT/HCPCS: 71010; 78452; 80048; 83735; 84484; 85025; 85610; 85730; 93005; 93017; 96374; 99284; A9502; J1250; J1885

== ENCOUNTER 2016-10-30 18:11 | Emergency (ER) | payer BC ==
[2016-10-30 14:09] LABS: ALLENS TEST Pos; BE (BASE EXCESS) 1.9 MEQ/L (0 +/- 2.5); CARBOXYHEMOGLOBIN 1.8 % (0-3); DEVICE NC; HCO3 (ACTUAL BICARBONATE) 27.1 MEQ/L (23-27); HEMOBLOGIN CONTENT 14.5 G/DL (14-18); INSTRUMENT SERIAL # 8087; METHEMOGLOBIN 0.2 % (0-3); O2 CONTENT 19.8 VOL% (18-24); PCO2 (CO2 TENSION) 44 MMHG (35-45); PO2 (O2 TENSION) 118 MMHG (79-93); SAMPLE Arterial
[2016-10-30 14:23] LABS: BASOPHILS 0.3 %; BASOPHILS ABSOLUTE 0.02 10/3/uL (0.0-0.16); EOSINOPHILS 1.6 %; ER CBC TAT 0 Hrs 07 Mins; HEMATOCRIT 43.9 % (40.0-51.0); HEMOGLOBIN 13.6 g/dL (13.6-17.8); IMMATURE GRANULOCYTES 0.2 %; IMMATURE GRANULOCYTES ABSOLUTE 0.01 10/3/uL (0.0-0.11); LYMPHOCYTES 15.2 %; LYMPHOCYTES ABSOLUTE 0.95 10/3/uL (0.67-4.30); MANUAL DIFF NO %; MEAN CORPUSCULAR HEMOGLOB 29.4 pg (26.0-34.0); MEAN PLATELET VOLUME 12.2 fL (9.2-13.0); MONOCYTES 9.8 %; MONOCYTES ABSOLUTE 0.61 10/3/uL (0.21-1.20); NEUTROPHILS 72.9 %; NEUTROPHILS ABSOLUTE 4.55 10/3/uL (2.02-8.40); PLATELET COUNT 122 10/3/uL (150-400); RBC DISTRIBUTION WIDTH 14.1 % (12.0-16.0); RED CELL COUNT 4.62 10/6/uL (4.7-6.1); WHITE BLOOD CELLS 6.2 10/3/uL (4.5-10.5)
[2016-10-30 14:34] LABS: BUN (BLOOD UREA NITROGEN) 11 MG/DL (6-23); CHLORIDE, SERUM 102 MMOL/L (96-112); CO2 (CARBON DIOXIDE) 31 MMOL/L (24-34); CREATININE 0.73 MG/DL (0.70-1.30); GFR AFRICAN AMERICAN 115 ML/MIN (>=60); GFR NON AFRICAN AMERICAN 99 ML/MIN (>=60); GLUCOSE, SERUM 181 MG/DL (60-99); POTASSIUM, SERUM 4.3 MMOL/L (3.5-5.3); SODIUM, SERUM 139 MMOL/L (135-148)
[2016-10-30 14:35] LABS: CALCIUM, SERUM 9.7 MG/DL (8.5-10.4)
[2016-12-17] MEDS ORDERED: CLARIT10 PO (09:11)
[2016-12-17] MEDS ORDERED: SINGULAIR1 PO (09:12)
[2016-12-17] MEDS ORDERED: AMB5 PO (09:12)
[2016-12-17] MEDS ORDERED: PROTONIX PO (09:12)
[2016-12-17] MEDS ORDERED: HALF81 PO (09:12)
[2016-12-17] MEDS ORDERED: MOBIC15 MG PO (09:12)
[2016-12-19] MEDS ORDERED: P10 PO (16:49)
[2016-12-19] MEDS ORDERED: VIBRATAB100 MG PO (16:50)
== END 2016-10-30 18:28 | disposition home or self-care (01) ==
LOC: ER 18:11
PROVIDERS: Emergency Medicine
DX: R42 Dizziness and giddiness (principal); R06.02 Shortness of breath; J44.9 Chronic obstructive pulmonary disease, unspecified; I11.0 Hypertensive heart disease with heart failure; I50.9 Heart failure, unspecified; G47.30 Sleep apnea, unspecified; K74.60 Unspecified cirrhosis of liver; Z87.01 Personal history of pneumonia (recurrent); Z88.5 Allergy status to narcotic agent; Z79.4 Long term (current) use of insulin; Z79.899 Other long term (current) drug therapy
CPT/HCPCS: 36600; 70450; 71010; 80048; 82805; 85025; 93005; 94640; 96374; 99285; A9270-GY; J2930